=== PATIENT | female | born 1970 | race Caucasian/White ===

== ENCOUNTER → 2017-04-19 | Outpatient (CLI) | payer MEDICAID | LOC: FIMAGING 10:18 | PROVIDERS: ATTEND Internal Medicine | DX: M51.36 Other intervertebral disc degeneration, lumbar region (principal); M51.37 Other intervertebral disc degeneration, lumbosacral region ==

== ENCOUNTER → 2019-02-14 | Outpatient (CLI) | payer MEDICAID | LOC: FIMAGING 17:19 | PROVIDERS: ATTEND Internal Medicine | DX: J40 Bronchitis, not specified as acute or chronic (principal) ==